=== PATIENT | female | born 1955 | race Caucasian/White ===

== ENCOUNTER 2024-11-26 11:06 | Emergency (ER) | payer MEDICARE, SELFPAY ==
--- NOTE | ~2024-11-26 | XR_ITS ---
Clinical history:Proximal right index finger pain. Hyperflexion injury EXAM:X-ray finger second right minimum 2 views TECHNIQUE:4 images of the right second digit were obtained. Comparisons:None available FINDINGS: [ No significant degenerative change.] [ No radiographic evidence for an acute fracture or dislocation.] [ No radiopaque foreign body.] [ No sclerotic or destructive bone lesions.] Soft tissue swelling about the right second digit. IMPRESSION: 1. [ No acute bony abnormality identified.] If symptoms persist or worsen consider a short-term follow-up study or additional imaging for further assessment. Reviewed, dictated and finalized at location Q. IMPRESSION: 1. [ No acute bony abnormality identified.] If symptoms persist or worsen consider a short-term follow-up study or addition al imaging for further assessment.
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
--- OUTSIDE RECORDS SUMMARY | 2024-11-26 11:09 | XMS_ITS ---
Author Organization [facility] Address [address] [place] [address] Care Team Providers Care Smoking Tobacco Packer Hand Name Role Phone David Hayden MD Primary Care Provider + [phone] David Hayden MD Unavailable [phone] Eri Degroot MARINE PAINTER Unavailable Unavailab Dorinda Saavedra MARINE PAINTER Unavailable Unavailab David Echevarria MD Unavailable Maria Elena Rinaldi PT Unavailable Unavailable Liana Milan SPA DIRECTOR/FINANCE Unavailable Unavailable Tomas Ruff MD Unavailable Active Problems Problem Noted Date Diagnosed Date Screen for colon cancer 09/10/2018 Overview (09/10/2018): Added automatically from request for surgery [id number] Unilateral vocal fold paralysis 06/11/2018 Assessment & [...] (12/31/2017): Added automatically from request for surgery [id number] Low back pain 07/16/2017 Hematoma of neck 06/05/2017 Status post total left knee replacement 09/13/19 16 Visit for wound check 09/13/2015 Osteoarthritis 01/30/2012 Overview (05/31/2016): Osteoarthritis Hypothyroidism 01/30/2012 Overview (05/31/2016): Hypothyroidism Current Treatment and Therapy Plans No current plan information found. Past Treatment and Therapy Plans No past plan information found. Lifetime Dose Tracking * Chemical Lifetime Dose Automatic Entry Manual Entr y Fluoro Time 0.9 minutes 0.9 minutes 0 minutes Resolved Problems Problem Noted Date Diagnosed Date [...]
--- OUTSIDE RECORDS SUMMARY | 2024-11-26 11:09 | XMS_ITS | Encounter Summary ---
Author Organization [facility] Address [address] [place] [address] Phone Care Team Providers Care Laundry Housekeeping Aide Name Role Phone David Hayden MD Primary Care Provider [phone] Radha Agarwal APRN, YOUTH WORKER Unavailable Reason for Visit * Reason Comments Medication Refill Encounter Details Date Type Department Care Team (Late st Contact Info) Description 05/07/2023 Refill [facility] - Internal Medicine - [place] [address] [place] [address] David Hayden MD [address] [place] [address] Medication Refill Social History Tobacco Use Types Packs/Day Years Used Date Smoking Tobacco: Never Passive Smoke Exposure: Never Smokeless Tobacco: Never Alcohol Use Standard Drinks/Week Comments Not Currently 0 (1 standard drink = 0.6 oz pur e alcohol) [facility] Utilities Answer Date Recorded In the past 12 months has [employer], gas, oil, or water company threatened to shut off services in your home? No 03/25/2023 Social Connection and Isolation Panel Answer Date Recorded In a typical week, how many times do you talk on the phone with family, friends, or neighbors? More than three times a week 03/25/2023 How often do you get togethe r with friends or relatives? More than three times a week 03/25/2023 How often do you attend chur ch or cheondoism services? More than 4 times per year 03/25/2023 Do you belong to any clubs o r organizations such as congregational groups, unions, fraternal or athletic groups, or school groups? Yes 03/25/2023 How often do you attend meet ings of the clubs or organizations you belong to? More than 4 times per year 03/25/2023 Are you , , di vorced, , never , or living with a partner? 03/25/2023 AUDIT-C Answer Date Recorded Q1: How often do you have a drink containing alcohol? Never 03/25/2023 Q2: How many drinks containi ng alcohol do you have on a typical day when you are drinking? Patient does not drink Q3: How often do you have si x or more drinks on one occasion? Never 03/25/2023 Overall Financial Resource Strain (CARDIA) Answe r Date Recorded How hard is it for you to pa y for the very basics like food, housing, medical care, and heating? Not hard at all 03/25/2023 PHQ-2 Answer Date Recorded Total Score - Questions 1-9 0 02/26 [facility] Occupat ional Health - Occupational Stress Questionnaire Answer Date Recorded Do you feel stress - tense, restless, nervous, or anxious, or unable to sleep at night because your mind is troubled all the time - these days? Only a little 03/25/2023 Exercise Vital Sign Answer Date Recorde d On average, how many days pe r week do you engage in moderate to strenuous exercise (like a brisk walk)? 3 days 03/25/2023 On average, how many minutes do you engage in exercise at this level? 40 min 03/25/2023 Hunger Vital Sign Answer Date Recorded Within the past 12 months, y ou worried that your food would run out before you got the money to buy more. Never true 03/25/19 24 Within the past 12 months, t he food you bought just didn't last and you didn't have money to get more. Never true 03/25/2023 PRAPARE - Transportation Answer Date Re corded In the past 12 months, has l ack of transportation kept you from medical appointments or from getting medications? No 02/26 In the past 12 months, has l ack of transportation kept you from meetings, work, or from getting things needed for daily living? No 03/25/2023 Housing Stability Vital Sign Answer Selvin e Recorded In the last 12 months, was t here a time when you were not able to pay the mortgage or rent on time? No 03/25/2023 In the last 12 months, how many places have you lived? 2 03/25/2023 In the last 12 months, was t here a time when you did not have a steady place to sleep or slept in a nursing home (including now)? No 03/25/2023 Sexually Active Control Partners Comments Yes Comments No Sex and Gender Information Value Date Recorded Sex Assigned at Not on file Legal Sex Female 12:34 AM CDT Gender Identity Not on file Sexual Orientation Not on file documented as of this encounter Miscellaneous Notes * Telephone Encounter - Rina Rae RN - 05/07/2023 2:22 PM CDT Medication failed the protocol, provider to review and approve the medication order if appropriate. Requested Prescriptions Pending Prescriptions Disp Refills levothyroxine (SYNTHROID) 112 MCG Tablet [Pharmacy Med Name: Levothyroxine Sodium 112 MCG Oral Tablet] 90 Tablet 0 Sig: Take 1 tablet by mouth once daily Thyroid Hormones Protocol Passed - 05/07/2023 2:16 PM Passed - Visit with relevant provider in past 12 months or upcoming 90 days Recent Visits Date Type Provider Dept 03/25/23 Office Visit David Hayden MD [facility] [place] 12/19/22 Office Visit David Hayden MD [facility] [place] 09/03/22 Office Visit David Hayden MD [facility] [place] 06/04/22 Office Visit David Hayden MD [facility] [place] Showing recent visits within past 365 days and meeting all other requirements Future Appointments Date Type Provider Dept 06/24/23 Appointment David Hayden MD [facility] [place] Showing future appointments within next 90 days and meeting all other requirements Passed - Normal TSH in past 12 months TSH Date Value Ref Range Status 03/26/2023 1.955 0.300 - 5.000 mIU/L Final cyclobenzaprine (FLEXERIL) 10 MG Tablet [Pharmacy Med Name: Cyclobenzaprine HCl 10 MG Oral Tablet] 45 Tablet 0 Sig: TAKE 1/2 (ONE-HALF) TABLET BY MOUTH THREE TIMES DAILY NEEDED FOR MUSCLE SPASM Not Delegated - Muscle Relaxants Protocol Failed - 05/07/2023 2:16 PM Failed - This refill cannot be delegated Failed - Not delegated, patient not between 1 and 65 years of age Passed - Visit with relevant provider in past 12 months or upcoming 90 days Recent Visits Date Type Provider Dept 03/25/23 Office Visit David Hayden MD [facility] [place] 12/19/22 Office Visit David Hayden MD [facility] [place] 09/03/22 Office Visit David Hayden MD [facility] [place] 06/04/22 Office Visit David Hayden MD [facility] [place] Showing recent visits within past 365 days and meeting all other requirements Future Appointments Date Type Provider Dept 06/24/23 Appointment David Hayden MD [facility] [place] Showing future appointments within next 90 days and meeting all other requirements documented in this encounter Plan of Treatment Upcoming Encounters Date Type Department Care Team (Late st Contact Info) Description 01/06/2025 9:00 AM MATERNAL FETAL PHYSICIAN Office Visit [facility] - Primary Care - [place] [address] [place] [phone] David Hayden MD [address] [place] [address] 01/31/2025 1:30 PM MATERNAL FETAL PHYSICIAN Office Visit [facility] - Gastroenterology - [place] [address] [facility] [place] [address] Radha Agarwal APRN, YOUTH WORKER [address] [place] [address] documented as of this encounter Visit Diagnoses Not on filedocumented in this encounter Additional Health Concerns Assessment Noted Time PHQ-9 Depression Total Score: 0 03/25/19 24 3:25 PM MATERNAL FETAL PHYSICIAN documented as of this encounter Care Teams Laundry Housekeeping Aide Relationship Specialty Start Date End Date David Hayden MD PCP - General Internal Medicine 12/22/19 Radha Agarwal APRN, YOUTH WORKER [address] [place] [address] Nurse Practitioner Advanced Practice Nurse 04/23/24 documented as of this encounter
--- OUTSIDE RECORDS SUMMARY | 2024-11-26 11:09 | XMS_ITS | Clinical Summary ---
Author Organization [facility] Address [address] [place] [address] Phone Care Team Providers Care Bank Vault Clerk Name Role Phone David Hayden MD Primary Care Provider [phone] Radha Agarwal APRN, HAND BINDER STRIPPER Unavailable Allergies Active Allergy Reactions Criticality Noted Date Comments Tetracycline Unknown 07/17/2015 As a baby. Medications calcium carbonate (TUMS) 250 MG Chewable Tablet Take 1,625 mg by mouth. Active Biotin 10 MG Capsule Take 10,000 mcg by mouth. Active Cyanocobalamin (VITAMIN B-12) 1000 MCG Tablet Take 5,000 mcg by mouth. Active Vitamin E 45 MG (100 UNIT) Capsule Take 100 Units by mouth. Active Multiple Vitamin (MULTI-VITAMIN PO) Take by mouth. Active gabapentin (NEURONTIN) 100 MG Capsule TAKE 1 CAPSULE BY MOUTH NIGHTLY 90 Capsule 07/22/19 25 Active levothyroxine (SYNTHROID) 112 MCG Tablet Take 1 tablet by mouth once daily 90 Tablet 11/02/19 25 Active cyclobenzaprine (FLEXERIL) 10 MG Tablet TAKE 1/2 (ONE-HALF) TABLET BY MOUTH THREE TIMES DAILY NEEDED FOR MUSCLE SPASM 45 Tablet 11/02/19 25 Active HYDROcodone-az taminophen (NORCO) 7.5-325 MG TabletIndicatio ns:Primary generalized (osteo)arthriti s Take 1 Tablet by mouth Daily as needed for Moderate or more severe pain. 30 Tablet 11/02/19 25 Active cyclobenzaprine (FLEXERIL) 10 MG Tablet TAKE 1/2 (ONE-HALF) TABLET BY MOUTH THREE TIMES DAILY NEEDED FOR MUSCLE SPASM 45 Tablet 07/06/19 25 025 Discontinued levothyroxine (SYNTHROID) 112 MCG Tablet Take 1 Tablet by mouth daily. 90 Tablet 07/22/19 25 025 Discontinued HYDROcodone-az taminophen (NORCO) 7.5-325 MG TabletIndicatio ns:Primary generalized (osteo)arthriti s Take 1 Tablet by mouth Daily as needed for Moderate or more severe pain. 30 Tablet 09/07/19 25 025 Discontinued(Re order) Active Problems Problem Noted Date Diagnosed Date Other cirrhosis of liver 04/07/2024 Other specified hypothyroidism 09/07/2020 Overview (09/07/2020): Stable. Continue current medication Chronic bilateral low back pain without sciatica 01/05/2020 Bariatric surgery status 01/05/2020 History of endometrial cancer 01/05/2020 Unilateral vocal cord paralysis 01/05/2020 Primary generalized (osteo)arthritis 05/10/2011 Resolved Problems Problem Noted Date Diagnosed Date Resolved Date Upper respiratory tract infection 04/07/2024 07/05/2024 Malignant neoplasm of endometrium 07/29/2018 03/14/2022 Encounters Date Type Department Care Team Description 11/10/2024 Transcribe Orders [facility] Central Scheduling [address] [place] [address] Tomas Ruff MD Other abnormal and inconclusive findings on diagnostic imaging of breast (Primary Dx) 11/08/2024 2:30 PM CDT - 11/08/2024 11:59 PM CDT [facility] [address] [place] [address] Benigno Ruff MD Discharge Disposition: Discharged to home or Selfcare 11/08/2024 Travel 11/01/2024 Telephone [facility] - Primary Care - [place] [address] [place] [address] David Hayden MD Medication Refill 11/01/2024 Refill [facility] Internal Medicine [facility] [address] [place] [address] David Hayden MD Medication Refill 10/27/2024 Transcribe Orders [facility] [address] [place] [address] [place] [address] Benigno Ruff MD Visit for screening mammogram (Primary Dx) 10/05/2024 11:00 AM CDT Office Visit [facility] - Primary Care - [place] [id number] [place] [address] David Hayden MD Chronic bilateral low back pain without sciatica (Primary Dx); Primary generalized (osteo)arthritis; Other specified hypothyroidism Discharge Disposition: Discharged to home or Selfcare 10/05/2024 Travel 09/06/2024 Refill [facility] Internal [facility] [address] [place] [address] David Hayden MD Medication Refill from Last 3 Months Immunizations Immunization Administration Dates Next Due TDAP Vaccine 08/05/2020 Zoster Vaccine Recombinant 06/20/2022 Zoster Vaccine, live 06/27/2015 Family History Medical History Relation Name Comments No Known Problems Brother Heart Attack Father Hypertension Father Breast Cancer Mother Cancer Mother Breast Cancer Niece Breast Cancer Paternal Uncle Relation Name Status Comments Brother Alive Father Alive Mother Niece Other Paternal Uncle Sister Social History Tobacco Use Types Packs/Day Years Used Date Smoking Tobacco: Never Passive Smoke Exposure: Never Smokeless Tobacco: Never Tobacco Cessation:Counseling Given: No Alcohol Use Standard Drinks/Week Comments Not Currently 0 (1 standard drink = 0.6 oz pur e alcohol) [facility] Utilities Answer Date Recorded In the past 12 months has [employer], gas, oil, or water [place] threatened to shut off services in your [...] 03/25/2023 How often do you attend chur or moravian services? More than 4 times per year 03/25/2023 Do you belong to any clubs o r organizations such as scientology groups, unions, fraternal or athletic groups, or [...] Recorded Total Score - Questions 1-9 0 06/24 [employer] of Occupat ional Health - Occupational Stress [...] place to sleep or slept in a chcf (including now)? No 03/25/2023 Sexually Active Control Partners Comments Yes Comments No Sex and Gender Information Value Date Recorded Sex Assigned at Not on file Legal Sex Female 12:34 AM CDT Gender Identity Not on file Sexual Orientation Not on file Last Filed Vital Signs Vital Sign Reading Time Taken Comments Blood Pressure 134/76 10/05/2024 10:50 AM CDT Pulse 76 10/05/2024 10:50 AM CDT Temperature 36.4 C (97.5 F) 10/05/2024 10:50 AM CDT Respiratory Rate 14 07/26/2024 1:37 PM CDT Oxygen Saturation 98% 10/05/2024 10:50 AM CDT Inhaled Oxygen Concentration - - Weight 108.9 kg (240 lb) 10/05/2024 10:50 AM CDT Height 170.2 cm (5' 7) 10/05/2024 10:50 AM CDT Body Mass Index 37.59 10/05/2024 10:50 AM CDT Plan of Treatment Upcoming Encounters Date Type Department Care Team (Late st Contact Info) Description 01/06/2025 9:00 AM ELECTRIC CRANE OPERATOR Office Visit [facility] - Primary Care - [place] [address] [place] [place] [phone] David Hayden MD [address] [place] [address] 01/31/2025 1:30 PM ELECTRIC CRANE OPERATOR Office Visit [facility] - Gastroenterology - [place] [address] [place] [address] Radha Agarwal, REINIER, HAND BINDER STRIPPER [address] [place] [address] Health Maintenance Due Date Last Done Comments DEXA Bone Density 1955 Immunochemical Fecal Occult Blood 02/12/2000 Hepatitis B Immunization (1 of 3 - Risk 3-dose series) 2015 Respiratory Syncytial Virus (RSV) Immunization (Adult) (1 - Risk 60-74 years 1-dose series) 2015 Medicare Initial AWV G0438 06/24/2021 Cologuard 08/26/2021 08/26/2018 SARS-COV-2 Immunization ( season) 2024 05/13/2020, 04/22/2020 Mammogram 11/08/2025 11/08/2024, 090 10/2023, 01/11/2022, Additional history exists Td Immunization Every 10 Years (Adults With 1 Tdap) 08/05/2030 08/05/2020, 05/30/2017 Colonoscopy 12/25/2031 12/24/2021, 11/24, 10/05/2018, Additional history exists Colorectal Cancer Screening 12/25/2031 DTaP/Tdap/Td Immunization Discontinued 08/05/2020, 07/2017 Zoster Immunization Discontinued 08/15/2022, 06/20/2022, 06/27/2015 Hepatitis C Virus (HCV) Screening Completed 04/23/2024 Human Papillomavirus (HPV) Immunization Aged Out No longer eligible based on patient's age to complete this topic Influenza Immunization Discontinued Meningococcal Immunization (ACWY) Aged Out No longer eligible based on patient's age to complete this topic Pneumococcal Immunization (50+ years) Discontinued Rotavirus Immunization Aged Out No lo nger eligible based on patient's age to complete this topic Procedures Procedure Name Priority Date/Time Associated Diagnosis Comments RANI SCREENING BILATERAL DIGITAL W CAD W CASIMIRO Routine 11/08/2024 3:15 PM CDT Visit for screening mammogram HEPATITIS C ANTIBODY Routine 04/23/2024 12:22 PM ELECTRIC CRANE OPERATOR Other cirrhosis of liver (HCC) HM COLONOSCOPY 12/24/2021 12:00 AM CDT COLOGUARD Routine 08/26/2018 from Last 3 Months or Most Recently Relevant to Health Maintenance Results * [facility] SCREENING BILATERAL DIGITAL W CAD W CASIMIRO (11/08/2024 3:15 PM CDT) Anatomical Region Laterality Modality breast Bilateral Mammography 11/08/2024 2:49 PM CDT Impressions 11/08/2024 5:22 PM CDT IMPRESSION: Possible left breast mass. Further evaluation with limited breast ultrasound and possible diagnostic mammogram is advised. RECOMMENDATION: Immediate follow-up. BI-RADS 0: Incomplete: Need additional imaging evaluation. Narrative 11/08/2024 5:22 PM CDT [facility] SCREENING BILATERAL DIGITAL W CAD W CASIMIRO EXAM DATE: 11/08/2024 2:36 PM HISTORY: 69 years year old Female. Encounter for screening mammogram for malignant neoplasm of breast TECHNIQUE: Standard bilateral mammographic views were obtained. Additional 3D tomographic mammography was also obtained. Current study was also evaluated with a Computer Aided Detection (CAD) system. COMPARISON: Comparison made with previous examination(s) dated (MG) 03-Nov-2023,([place]) 11-Jan-2022,([place]) 11-Jan-2022. FINDINGS: There are scattered areas of fibroglandular density. (Category B) Right breast biopsy marker noted. Left breast lateral aspect possible mass noted 5 cm from nipple and measures approximately 1 cm in size. Further evaluation with limited breast ultrasound and possible diagnostic mammogram is advised. No suspicious masses, calcifications, architectural distortion or other findings in the right breast. us Tomas Ruff MD IMG MAMMO ORDERABLES F inal Result * HEPATITIS C ANTIBODY (04/23/2024 12:22 PM ELECTRIC CRANE OPERATOR) hepatitis C antibody 0.26 <1 S/CO 04/23/2024 10:41 PM ELECTRIC CRANE OPERATOR [facility] Comment: Signal/Cutoff ratio < 0.79 is Nondetected Signal/Cutoff ratio 0.80-0.99 is Grayzone Signal/Cutoff ratio > 0.99 is Detected Supplemental assays are recommended if signal/cutoff ratio is >/=1.00. Signal/cutoff ratio result >/= 5.00 is 97% predictive of positivity for recombinant immunoblot assay (RIBA) and will be reported to the [place] Department of Public Health as required. Blood Venipuncture / Unknown 04/23/2024 12:22 PM ELECTRIC CRANE OPERATOR 04/23/2024 12:27 PM ELECTRIC CRANE OPERATOR us Radha Agarwal HAND ASSEMBLER FOR PULLER OVER, HAND BINDER STRIPPER CHEMISTRY ORDERAB LES Final Result Performing Organization Address City/[facility]/ZIP Co de Phone Number [facility] [address] [place] [address], [place] * COLONOSCOPY (12/24/2021 12:00 AM CDT) 12/24/2021 us Not On File Provider PROCEDURE/MINOR SURGICAL OR DERABLES Final Result SCAN * COLOGUARD (08/26/2018) us David Hayden MD BODY FLUIDS & STOOLS ORDERA BLES Final Result from Last 3 Months or Most Recently Relevant to Health Maintenance Insurance [employer] Care Teams Bank Vault Clerk Relationship Specialty Start Date End Date David Hayden MD PCP - General Internal Medicine 12/22/19 Radha Agarwal APRN, HAND BINDER STRIPPER [address] [place] [address] Nurse Practitioner Advanced Practice Nurse 04/23/24
--- OUTSIDE RECORDS SUMMARY | 2024-11-26 11:09 | XMS_ITS | Encounter Summary ---
Author Organization [facility] Address [address] [place] [address] Phone Care Team Providers Care Peoplesoft Hrms Developer Name Role Phone David Hayden MD Primary Care Provider [phone] Radha Agarwal APRN, FORESTER SILVICULTURE Unavailable Reason for Visit * Reason Comments Medication Refill Encounter Details Date Type Department Care Team (Late st Contact Info) Description 08/02/2022 Refill [facility] - Internal Medicine - [place] [address] [place] [address] David Hayden MD [address] [place] [address] Medication Refill Social History Tobacco Use Types Packs/Day Years Used Date Smoking Tobacco: Never Passive Smoke Exposure: Never Smokeless Tobacco: Never Alcohol Use Standard Drinks/Week Comments Not Currently 0 (1 standard drink = 0.6 oz pur e alcohol) PHQ-2 Answer Date Recorded Total Score - Questions 1-9 0 05/25 Sexually Active Control Partners Comments Yes Comments No Sex and Gender Information Value Date Recorded Sex Assigned at Not on file Legal Sex Female 12:34 AM CDT Gender Identity Not on file Sexual Orientation Not on file documented as of this encounter Miscellaneous Notes * Telephone Encounter - Rina Rae RN - 08/02/2022 11:23 AM CDT Medication failed the protocol, provider to review and approve the medication order if appropriate. Requested Prescriptions Pending Prescriptions Disp Refills levothyroxine (SYNTHROID) 112 MCG Tablet [Pharmacy Med Name: Levothyroxine Sodium 112 MCG Oral Tablet] 90 Tablet 0 Sig: Take 1 tablet by mouth once daily Thyroid Hormones Protocol Failed - 08/02/2022 9:54 AM Failed - Normal TSH in past 12 months TSH Date Value Ref Range Status 11/09/2020 1.040 0.270 - 4.200 mIU/L Final Passed - Visit with relevant provider in past 12 months or upcoming 90 days Recent Visits Date Type Provider Dept 06/04/22 Office Visit David Hayden MD [facility] [place] 03/14/22 Office Visit David Hayden MD [facility] [place] 12/12/21 Office Visit David Hayden MD [facility] [place] 09/10/21 Office Visit David Hayden MD [facility] [place] Showing recent visits within past 365 days and meeting all other requirements Future Appointments Date Type Provider Dept 09/03/22 Appointment aDvid Hayden MD [facility] [place] Showing future appointments within next 90 days and meeting all other requirements documented in this encounter Plan of Treatment Upcoming Encounters Date Type Department Care Team (Late st Contact Info) Description 01/06/2025 9:00 AM MEDICAL CARE ADMINISTRATOR Office Visit [facility] - Primary Care - [place] [address] [place] [phone] David Hayden MD [address] [place] [address] 01/31/2025 1:30 PM MEDICAL CARE ADMINISTRATOR Office Visit [facility] - Gastroenterology - [place] [address] [place] [address] Radha Agarwal APRN, FORESTER SILVICULTURE [address] [place] [address] documented as of this encounter Visit Diagnoses Not on filedocumented in this encounter Additional Health Concerns Assessment Noted Time PHQ-9 Depression Total Score: 0 06/09/19 21 3:00 PM CDT documented as of this encounter Care Teams Peoplesoft Hrms Developer Relationship Specialty Start Date End Date David Hayden MD PCP - General Internal Medicine 12/22/19 Radha Agarwal APRN, FORESTER SILVICULTURE [address] [place] [address] Nurse Practitioner Advanced Practice Nurse 04/23/24 documented as of this encounter
--- OUTSIDE RECORDS SUMMARY | 2024-11-26 11:09 | XMS_ITS | Encounter Summary ---
Author Organization [facility] Address [address] [place] [address] Phone Care Team Providers Care Broker Assistant Name Role Phone David Hayden MD Primary Care Provider [phone] Radha Agarwal APRN, LAPPING MACHINE OPERATOR Unavailable Reason for Referral * Radiology Services (Routine) - Closed Specialty Diagnoses / Procedures Referred By Contac t Referred To Contact Radiology Diagnoses Visit for screening mammogram Procedures RANI SCREENING BILATERAL DIGITAL W CAD W Benigno Posada MD [address] [place] [address] Phone: tel: fax: Referral ID Status Reason Start Date Expiration Date Visits Re quested Visits Authorized [id number] Closed 10/27/2024 1 1 Encounter Details Date Type Department Care Team (Late st Contact Info) Description 10/27/2024 Transcribe Orders [facility] [address] [place] [address] Benigno Ruff MD [address] [facility] [address] [address] Visit for screening mammogram (Primary Dx) Social History Tobacco Use Types Packs/Day Years Used Date Smoking Tobacco: Never Passive Smoke Exposure: Never Smokeless Tobacco: Never Alcohol Use Standard Drinks/Week Comments Not Currently 0 (1 standard drink = 0.6 oz pur e alcohol) [facility] Utilities Answer Date Recorded In the past 12 months has th e electric, gas, oil, or water company threatened to [...] often do you attend chur ch or jain services? More than 4 times per year 03/25/2023 Do you belong to any clubs o r organizations such as presybeterian groups, unions, fraternal or athletic groups, or [...] Total Score - Questions 1-9 0 06/24 [employer] [place] of Occupat ional Health - Occupational Stress [...] place to sleep or slept in a fci (including now)? No 03/25/2023 Sexually Active Control Partners Comments Yes Comments No Sex and Gender Information Value Date Recorded Sex Assigned at Not on file Legal Sex Female 12:34 AM CDT Gender Identity Not on file Sexual Orientation Not on file documented as of this encounter Plan of Treatment Upcoming Encounters Date Type Department Care Team (Late st Contact Info) Description 01/06/2025 9:00 AM LINER REPLACER Office Visit [facility] - Primary Care - [place] [address] [phone] David Hayden MD [address] [address] 01/31/2025 1:30 PM LINER REPLACER Office Visit [facility] - Gastroenterology - [place] [address] [place] [address] Stefano Radha Juan, CHIEF REVENUE OFFICER, LAPPING MACHINE OPERATOR [address] [place] [address] documented as of this encounter Results * [facility] SCREENING BILATERAL DIGITAL W CAD W CASIMIRO (11/08/2024 3:15 PM CDT) Anatomical Region Laterality Modality breast Bilateral Mammography 11/08/2024 2:49 PM CDT Impressions 11/08/2024 5:22 PM CDT IMPRESSION: Possible left breast mass. Further evaluation with limited breast ultrasound and possible diagnostic mammogram is advised. RECOMMENDATION: Immediate follow-up. BI-RADS 0: Incomplete: Need additional imaging evaluation. Narrative 11/08/2024 5:22 PM CDT [facility] SCREENING BILATERAL DIGITAL W CAD W CASIMIRO [...] MD IMG MAMMO ORDERABLES F inal Result documented in this encounter Visit Diagnoses Diagnosis Visit for screening mammogram- Primary Other screening mammogram Visit for screening mammogram Other screening mammogram documented in this encounter Additional Health Concerns Assessment Noted Time PHQ-9 Depression Total Score: 0 07/06/19 25 10:59 AM CDT documented as of this encounter Care Teams Broker Assistant Relationship Specialty Start Date End Date David Hayden MD PCP - General Internal Medicine 12/22/19 Radha Agarwal APRN, [address] [place] [id number] Nurse Practitioner Advanced Practice Nurse 04/23/24 documented as of this encounter
--- OUTSIDE RECORDS SUMMARY | 2024-11-26 11:09 | XMS_ITS | Clinical Summary ---
Author Organization [facility] Address [address] [place] [address] Care Team Providers Care Port Drier Name Role Phone Magdaleno Dave MD Unavailable [phone] Source Comments [facility],non-owned Affiliates and Associated Physician Practices is amultiple site organization consisting of ambulatory clinics and hospital sitesin [place], [place], [place] and [place]. This disclosure is being madepursuant to the Care Everywhere program and may not contain all information available regarding this patient. Last updated 17.[facility] Allergies Active Allergy Reactions Criticality Noted Date Comments Tetracycline 07/17/2015 Medications * Be aware that medications may not be up to date on this document. Alwaysverify current medications with the patient. levothyroxine (SYNTHROID) 125 MCG tablet Take 125 mcg by mouth daily before breakfast 5 6 Active cyclobenzaprine (FLEXERIL) 10 MG tablet 5 mg 3 times daily as needed for Muscle Spasms 2 6 Active zolpidem (AMBIEN) 10 MG tablet Take 10 mg by mouth nightly as needed for Insomnia Active multivitamin daily (THERAGRAN) tablet Take 1 Tab by mouth daily with food Active lansoprazole (PREVACID) 30 MG capsule Take 30 mg by mouth daily before breakfast Active Calcium Carb-Cholecalci ferol (CALCIUM + D3 PO) Take 600 mg by mouth once daily Active oxyCODONE-aceta minophen (PERCOCET) 10-325 MG tablet Take 0.5-1 Tabs by mouth every 6 hours as needed for Pain 90 Tab 7 Active Active Problems Problem Noted Date Diagnosed Date Closed fracture of distal end of left radius Status post total left knee replacement 09/13/19 16 Visit for wound check 09/13/2015 Primary osteoarthritis of left knee 07/03/2015 Social History Tobacco Use Types Packs/Day Years Used Date Smoking Tobacco: Never Alcohol Use Standard Drinks/Week Comments No 0 (1 standard drink = 0.6 oz pur e alcohol) Comments No Sex and Gender Information Value Date Recorded Sex Assigned at Not on file Legal Sex Female 11:53 AM FINANCIAL RESERVE CLERK Gender Identity Not on file Sexual Orientation Not on file Last Filed Vital Signs Vital Sign Reading Time Taken Comments Blood Pressure 142/95 03/14/2016 8:58 AM FINANCIAL RESERVE CLERK Pulse 108 03/14/2016 8:58 AM FINANCIAL RESERVE CLERK Temperature 36.7 C (98.1 F) 03/14/2016 8:58 AM FINANCIAL RESERVE CLERK Respiratory Rate 18 03/14/2016 8:58 AM FINANCIAL RESERVE CLERK Oxygen Saturation 98% 03/14/2016 8:58 AM FINANCIAL RESERVE CLERK Inhaled Oxygen Concentration - - Weight 131.5 kg (290 lb) 03/11/2016 6:29 AM FINANCIAL RESERVE CLERK Height 172 cm (5' 7.7) 03/11/2016 6:29 AM FINANCIAL RESERVE CLERK Body Mass Index 44.49 03/11/2016 6:29 AM FINANCIAL RESERVE CLERK Plan of Treatment Health Maintenance Due Date Last Done Comments BONE DENSITY TESTING 1955 COLOGUARD (AGES 45-75) - COL ON CA SCREENING 1955 COLON MONITORING 1955 COLONOSCOPY - COLON CA SCREENING 1955 CT COLONOGRAPHY - COLON CA SCREENING 1955 Colorectal Cancer Screening 1955 FIT - COLON CA SCREENING 1955 FLEX SIG - COLON CA SCREENING 1955 LIPID TESTING 1955 MAMMOGRAM 1955 HEPATITIS C SCREENING 02/06/1973 DTAP/TDAP/TD VACCINES (1 - Tdap) 1974 PNEUMOCOCCAL VACCINE 50+ (1 of 1 - PCV) 2005 ZOSTER VACCINE (1 of 2) 2005 SCREENING FOR DIABETES 03/11/2019 7, 02/21/2016, 07/17/2015 DEPRESSION SCREENING 02/25/2024 COVID-19 VACCINE ( - 2023-2 5 season) 2024 INFLUENZA VACCINE (#1) 2024 Respiratory Syncytial Virus (RSV) Vaccine Pt: or over 60 yrs (1 - 1-dose 75+ series) 2030 HEPATITIS B VACCINE Aged Out No longe r eligible based on patient's age to complete this topic HIB VACCINE Aged Out No longer eligi ble based on patient's age to complete this topic HPV VACCINE Aged Out No longer eligi ble based on patient's age to complete this topic MENINGOCOCCAL (Group B) VACCINE SHARED DECISION-MAKING Aged Out No longer eligible based on patient's age to complete this topic MENINGOCOCCAL GROUPS A/C/Y/W VACCINE Aged Out No longer eligible b ased on patient's age to complete this topic Medical Devices Implanted Type Area Service Or Work Dispatcher Chief Device Identifier Shelf Expiration Date Model / Serial / Lot Milo Bone Stoughton Hv Implanted:Qty: 1 on 08/07/2015 by Magdaleno Dave MD at [facility] Left: Knee [employer] 12/24/2016 [id number] / / [id number] Ty Tibial Maxim 71mm Implanted:Qty: 1 on 08/07/2015 by Magdaleno Dave MD at [facility] Left: Knee [employer] 09/22/2024 [id number] / / [id number] Kn Ins Vangurd Fem Cocr Intlok L 67.5mm Implanted:Qty: 1 on 08/07/2015 by Magdaleno Dave MD at [facility] Left: Knee [employer] 12/05/2024 [id number] / / [id number] Butn Pat 31mm Implanted:Qty: 1 on 08/07/2015 by Magdaleno Dave MD at [facility] Left: Knee [employer] 01/14/2020 [id number] / / [id number] 16mm As Tibial Bearing Implanted:Qty: 1 on 08/07/2015 by Magdaleno Dave MD at [facility] Left: Knee [employer] 12/08/2019 [id number] / / [id number] As Tibial Bearing E1 Antioxidant Infused 12mm X 75mm Implanted:Qty: 1 on 03/11/2016 by Magdaleno Dave MD at [facility] Right: Knee [id number] 03/27/2020 [id number] / / [id number] Cmnt Bone Co Hv 40gm Implanted:Qty: 1 on 03/11/2016 by Magdaleno Dave MD at [facility] Right: Knee [employer] [id number] 06/23/2017 [id number] / / [id number] Tray Tib 75mm As Mx Kn Intlk Cocr 1 Pc Implanted:Qty: 1 on 03/11/2016 by Magdaleno Dave MD at [facility] Right: Knee [employer] [id number] 10/29/2025 [id number] / / [id number] Cmpnt Fem Kn Rt Cr Cmnt Prm Vngrd Intlk Implanted:Qty: 1 on 03/11/2016 by Magdaleno Dave MD at [facility] Right: Knee [employer] [id number] 02/13/2026 [id number] / / [id number] Cmpnt Ptlr Std 31mm 3 Pg Kn Ser A Implanted:Qty: 1 on 03/11/2016 by Magdaleno Dave MD at [facility] Right: Knee [employer] [id number] 02/10/2021 [id number] / / [id number] Procedures Procedure Name Priority Date/Time Associated Diagnosis Comments GLUCOSE - POINT OF CARE Routine 03/11/2016 6:56 AM FINANCIAL RESERVE CLERK from Last 3 Months or Most Recently Relevant to Health Maintenance Results * (ABNORMAL) GLUCOSE - POINT OF CARE (03/11/2016 6:56 AM FINANCIAL RESERVE CLERK) [facility] Glucose WB/POC 114(H) 70 - 106 mg/dL 03/11/2016 7:05 AM FINANCIAL RESERVE CLERK [facility] Blood BLOOD SPECIMEN / Unknown 03/11/2016 6:56 AM FINANCIAL RESERVE CLERK 03/11/2016 7:04 AM FINANCIAL RESERVE CLERK us Magdaleno Dave MD LAB - POINT OF CARE ORDERABLE S Final Result [facility] [address] [place] [address] from Last 3 Months or Most Recently Relevant to Health Maintenance Insurance [facility] [place] [address] Advance Directives * Full Code (Latest Code Status on File) Date Activated Date Inactivated Comments 03/11/2016 11:35 AM 03/14/2016 4:21 PM * Full Code Date Activated Date Inactivated Comments 08/07/2015 3:46 PM 08/10/2015 1:36 PM Care Teams Port Drier Relationship Specialty Start Date End Date Magdaleno Dave MD Orthopedic Surgery 07/03/15
--- OUTSIDE RECORDS SUMMARY | 2024-11-26 11:09 | XMS_ITS | Encounter Summary ---
Author Organization [facility] Address [address] [place] [address] Phone Care Team Providers Care Wellness Manager Name Role Phone David Hayden MD Primary Care Provider [phone] Radha Agarwal APRN, PRODUCER ASSISTANT Unavailable Reason for Visit * Reason Comments Medication Refill Encounter Details Date Type Department Care Team (Late st Contact Info) Description 05/15/2023 [facility]ill [facility] - Internal Medicine - [place] [address] [place] [address] David Hayden MD [address] [place] [address] Medication Refill Social History Tobacco Use Types Packs/Day Years Used Date Smoking Tobacco: Never Passive Smoke Exposure: Never Smokeless Tobacco: Never Alcohol Use Standard Drinks/Week Comments Not Currently 0 (1 standard drink = 0.6 oz pur e alcohol) [facility] Utilities Answer Date Recorded In the past 12 months has [employer], gas, oil, or water company threatened to [...] often do you attend chur ch or episcopal services? More than 4 times per year 03/25/2023 Do you belong to any clubs o r organizations such as sikh groups, unions, fraternal or athletic groups, or [...] Total Score - Questions 1-9 0 02/26 [facility] of Occupat ional Health - Occupational Stress [...] place to sleep or slept in a care home (including now)? No 03/25/2023 Sexually Active Control Partners Comments Yes Comments No Sex and Gender Information Value Date Recorded Sex Assigned at Not on file Legal Sex Female 12:34 AM CDT Gender Identity Not on file Sexual Orientation Not on file documented as of this encounter Miscellaneous Notes * Telephone Encounter - Little Burden RN - 05/15/2023 12:08 PM CDT Medication failed the protocol, provider to review and approve the medication order if appropriate. Requested Prescriptions Pending Prescriptions Disp Refills gabapentin (NEURONTIN) 100 MG Capsule [Pharmacy Med Name: Gabapentin 100 MG Oral Capsule] 90 Capsule 0 Sig: TAKE 1 CAPSULE BY MOUTH NIGHTLY Not Delegated - Anticonvulsants Excluding Benzodiazepines Protocol Failed - 05/15/2023 12:08 PM Failed - This refill cannot be delegated Passed - Visit with relevant provider in past 12 months or upcoming 90 days Recent Visits Date Type Provider Dept 03/25/23 Office Visit David Hayden MD [facility] [place] 12/19/22 Office Visit David Hayden MD [facility] [place] 09/03/22 Office Visit David Hayden MD [facility] [place] 06/04/22 Office Visit David Hayden MD [facility] [place] Showing recent visits within past 365 days and meeting all other requirements Future Appointments Date Type Provider Dept 06/24/23 Appointment David Hayden MD [facility] [place] Showing future appointments within next 90 days and meeting all other requirements documented in this encounter Plan of Treatment Upcoming Encounters Date Type Department Care Team (Late st Contact Info) Description 01/06/2025 9:00 AM SPORTS CENTRE MANAGER Office Visit [facility] - Primary Care - [place] [address] [place] [address] David Hayden MD [address] [place] [address] 01/31/2025 1:30 PM SPORTS CENTRE MANAGER Office Visit [facility] Gastroenterology - [place] [address] [place] [address] Radha Agarwal APRN, PRODUCER ASSISTANT [address] [place] [address] documented as of this encounter Visit Diagnoses Not on filedocumented in this encounter Additional Health Concerns Assessment Noted Time PHQ-9 Depression Total Score: 0 03/25/19 24 3:25 PM SPORTS CENTRE MANAGER documented as of this encounter Care Teams Wellness Manager Relationship Specialty Start Date End Date David Hayden MD PCP - General Internal Medicine 12/22/19 Radha Agarwal APRN, PRODUCER ASSISTANT [address] [place] [address] Nurse Practitioner Advanced Practice Nurse 04/23/24 documented as of this encounter
--- OUTSIDE RECORDS SUMMARY | 2024-11-26 11:09 | XMS_ITS | Encounter Summary ---
Author Organization [facility] Address [address] [place] [address] Phone Care Team Providers Care Breast Splitter Name Role Phone David Hayden MD Primary Care Provider [phone] Radha Agarwal APRN, WATER PUMPER Unavailable Reason for Referral * Radiology Services (Routine) - Closed Specialty Diagnoses / Procedures Referred By Contac t Referred To Contact Radiology Diagnoses Encounter for screening mammogram for breast cancer Procedures RANI SCREENING BILATERAL DIGITAL W CAD W CASIMIRO David Hayden MD Phone: tel: fax: Referral ID Status Reason Start Date Expiration Date Visits Re quested Visits Authorized [id number] Closed 10/31/2023 1 1 Encounter Details Date Type Department Care Team (Late st Contact Info) Description 10/31/2023 Transcribe Orders [facility] Central Scheduling [address] [place] [address] David Hayden MD [address] [place] [address] Encounter for screening mammogram for breast cancer (Primary Dx) Social History Tobacco Use Types Packs/Day Years Used Date Smoking Tobacco: Never Passive Smoke Exposure: Never Smokeless Tobacco: Never Alcohol Use Standard Drinks/Week Comments Not Currently 0 (1 standard drink = 0.6 oz pur e alcohol) [facility] Utilities Answer Date Recorded In the [...] often do you attend chur ch or taoism services? More than 4 times per year 03/25/2023 Do you belong to any clubs o r organizations such as hindu groups, unions, fraternal or athletic groups, or [...] Total Score - Questions 1-9 0 02/26 [facility] [place] of Occupat ional Health - Occupational Stress [...] place to sleep or slept in a custodial (including now)? No 03/25/2023 Sexually Active Control [...] st Contact Info) Description 01/06/2025 9:00 AM CANE WEIGHER HELPER Office Visit [facility] - Primary Care - [place] [address] [place] [phone] David Hayden MD [address] [address] 01/31/2025 1:30 PM CANE WEIGHER HELPER Office Visit [facility] - Gastroenterology - [place] [address] [place] [address] Stefano Radha Juan, ALUMNI SECRETARY, WATER PUMPER [address] [place] [address] documented as of this encounter Results * RANI SCREENING BILATERAL DIGITAL W CAD W CASIMIRO (11/03/2023 4:11 PM CDT) Anatomical Region Laterality Modality breast Bilateral Mammography 11/03/2023 3:32 PM CDT Narrative 11/13/2023 10:45 AM CDT - RANI SCREENING BILATERAL DIGITAL W CAD W CASIMIRO BILATERAL DIGITAL SCREENING MAMMOGRAM 3D/2D WITH CAD WITH MEDIOLATERAL OBLIQUE CRANIOCAUDAL: 11/03/2023 The study was acquired using digital technology and interpreted from soft copy. Current study was also evaluated with PantheonD version 7.2. 2D digital mammographic views, as well as 3D digital tomosynthesis were performed in the CC and MLO projections. CLINICAL: Routine screening. Patient has no complaints. No personal history of cancer. Mother had premenopausal Paget's disease. Paternal aunt and a niece had breast cancer. COMPARISONS: Comparison is made to exams dated: 01/11/2022, 09/09/2020, and 09/26/2018 [facility]. BREAST TISSUE:The breasts are heterogeneously dense, which may obscure small masses. FINDINGS: There is a benign cyst in the left breast. There also are benign calcifications in both breasts. Additionally, there is a biopsy clip in the right breast. No significant masses, calcifications, or other findings are seen in either breast. There has been no significant interval change. IMPRESSION: BENIGN There is no mammographic evidence of malignancy. A 1 year screening mammogram is recommended. A letter will be sent to the patient with these results. The patient will be entered into a reminder system with a target due date of 1 year for her next screening exam. Electronically signed by: Breana miller/yosef:11/04/2023 20:08:57 Frame Straightener(s): RT Joseph(Myla)(M), [facility] letter sent: Normal Exam Reading location: [facility] Mammogram BI-RADS: Category 2: Benign Procedure Note Breana Perez MD - 11/13/2023 - RANI SCREENING BILATERAL DIGITAL W CAD W CASIMIRO BILATERAL DIGITAL SCREENING MAMMOGRAM 3D/2D WITH CAD WITH MEDIOLATERAL OBLIQUE CRANIOCAUDAL: 11/03/2023 The study was acquired using digital technology and interpreted from soft copy. Current study was also evaluated with ICAD version 7.2. 2D digital mammographic views, as well as 3D digital tomosynthesis were performed in the CC and MLO projections. CLINICAL: Routine screening. Patient has no complaints. No personal history of cancer. Mother had premenopausal Paget's disease. Paternal aunt and a niece had breast cancer. COMPARISONS: Comparison is made to exams dated: 01/11/2022, 09/09/2020, and 09/26/2018 [facility]. BREAST TISSUE:The breasts are heterogeneously dense, which may obscure small masses. FINDINGS: There is a benign cyst in the left breast. There also are benign calcifications in both breasts. Additionally, there is a biopsy clip in the right breast. No significant masses, calcifications, or other findings are seen in either breast. There has been no significant interval change. IMPRESSION: BENIGN There is no mammographic evidence of malignancy. A 1 year screening mammogram is recommended. A letter will be sent to the patient with these results. The patient will be entered into a reminder system with a target due date of 1 year for her next screening exam. Electronically signed by: Breana miller/yosef:11/04/2023 20:08:57 Frame Straightener(s): RT Joseph(R)(M), [facility] letter sent: Normal Exam Reading location: [facility] Mammogram BI-RADS: Category 2: Benign us David Hayden MD IMG MAMMO ORDERABLES Final Result documented in this encounter Visit Diagnoses Diagnosis Encounter for screening mammogram for breast cancer- Primary Encounter for screening mammogram for breast cancer documented in this encounter Additional Health Concerns Assessment Noted Time PHQ-9 Depression Total Score: 0 03/25/19 24 3:25 PM CANE WEIGHER HELPER documented as of this encounter Care Teams Breast Splitter Relationship Specialty Start Date End Date David Hayden MD PCP - General Internal Medicine 12/22/19 Radha Agarwal APRN, WATER PUMPER [address] [place] [address] Nurse Practitioner Advanced Practice Nurse 04/23/24 documented as of this encounter
--- OUTSIDE RECORDS SUMMARY | 2024-11-26 11:09 | XMS_ITS | Encounter Summary ---
Author Organization [facility] Address [address] [place] [address] Phone Care Team Providers Care Mule Packer Name Role Phone David Hayden MD Primary Care Provider [phone] Radha Agarwal APRN, EDITOR [place] Unavailable Reason for Visit * Reason Comments Medication Refill Encounter Details Date Type Department Care Team (Late st Contact Info) Description 08/07/2023 Refill [facility] - Internal Medicine - [place] [address] [place] [address] David Hayden MD [address] [place] [address] Medication Refill Social History Tobacco Use Types Packs/Day Years Used Date Smoking Tobacco: Never Passive Smoke Exposure: Never Smokeless Tobacco: Never Alcohol Use Standard Drinks/Week Comments Not Currently 0 (1 standard drink = 0.6 oz pur e alcohol) [facility] Utilities Answer Date Recorded In the past 12 months has [employer], gas, oil, or water company threatened to [...] often do you attend chur ch or gnosticist services? More than 4 times per year 03/25/2023 Do you belong to any clubs o r organizations such as jew groups, unions, fraternal or athletic groups, or [...] Total Score - Questions 1-9 0 02/26 [facility] - Occupational Stress [...] place to sleep or slept in a detention (including now)? No 03/25/2023 Sexually Active Control Partners Comments Yes Comments No Sex and Gender Information Value Date Recorded Sex Assigned at Not on file Legal Sex Female 12:34 AM CDT Gender Identity Not on file Sexual Orientation Not on file documented as of this encounter Miscellaneous Notes * Telephone Encounter - Rina Rae RN - 08/07/2023 1:47 PM CDT Medication failed the protocol, provider to review and approve the medication order if appropriate. Requested Prescriptions Pending Prescriptions Disp Refills gabapentin (NEURONTIN) 100 MG Capsule [Pharmacy Med Name: Gabapentin 100 MG Oral Capsule] 90 Capsule 0 Sig: TAKE 1 CAPSULE BY MOUTH NIGHTLY Not Delegated - Anticonvulsants Excluding Benzodiazepines Protocol Failed - 08/07/2023 12:04 PM Failed - This refill cannot be delegated Passed - Visit with relevant provider in past 12 months or upcoming 90 days Recent Visits Date Type Provider Dept 06/24/23 Office Visit David Hayden MD [facility] [place] 03/25/23 Office Visit David Hayden MD [facility] [place] 12/19/22 Office Visit David Hayden MD [facility] [place] 09/03/22 Office Visit David Hayden MD [facility] [place] Showing recent visits within past 365 days and meeting all other requirements Future Appointments Date Type Provider Dept 09/23/23 Appointment David Hayden MD [facility] [place] Showing future appointments within next 90 days and meeting all other requirements documented in this encounter Plan of Treatment Upcoming Encounters Date Type Department Care Team (Late st Contact Info) Description 01/06/2025 9:00 AM NIGHT GUARD Office Visit [facility] - Primary Care - [place] [address] [place] [address] David Hayden MD [address] [place] [address] 01/31/2025 1:30 PM NIGHT GUARD Office Visit [facility] Gastroenterology - [place] [address] [place] [address] Radha Agarwal APRN, [place] [address] [place] [address] documented as of this encounter Visit Diagnoses Not on filedocumented in this encounter Additional Health Concerns Assessment Noted Time PHQ-9 Depression Total Score: 0 03/25/19 24 3:25 PM NIGHT GUARD documented as of this encounter Care Teams Mule Packer Relationship Specialty Start Date End Date David Hayden MD PCP - General Internal Medicine 12/22/19 Radha Agarwal APRN, [place] [address] [place] [address] Nurse Practitioner Advanced Practice Nurse 04/23/24 documented as of this encounter
--- OUTSIDE RECORDS SUMMARY | 2024-11-26 11:09 | XMS_ITS | Encounter Summary ---
Author Organization [facility] Address [address] [place] [address] Phone Care Team Providers Care Senior Telecommunications Technician Name Role Phone David Hayden MD Primary Care Provider [phone] Radha Agarwal APRN, CLAIM AGENT Unavailable Reason for Visit * Reason Comments Medication Refill Encounter Details Date Type Department Care Team (Late st Contact Info) Description 10/23/2022 Refill [facility] - Internal Medicine [place] [address] Jaye Bernard, [facility] [address] [place] [address] Medication Refill Social History Tobacco [...] Telephone Encounter - Rina Rae RN - 10/23/2022 10:20 AM CDT Medication failed the protocol, provider to review and approve the medication order if appropriate. Requested Prescriptions Pending Prescriptions Disp Refills levothyroxine (SYNTHROID) 112 MCG Tablet [Pharmacy Med Name: Levothyroxine Sodium 112 MCG Oral Tablet] 90 Tablet 0 Sig: Take 1 tablet by mouth once daily Thyroid Hormones Protocol Failed - 10/23/2022 9:12 AM Failed - Normal TSH in past 12 months TSH Date Value Ref Range Status 11/09/2020 1.040 0.270 - 4.200 mIU/L Final Passed - Visit with relevant provider in past 12 months or upcoming 90 days Recent Visits Date Type Provider Dept 09/03/22 Office Visit David Hayden MD [facility] [place] 06/04/22 Office Visit David Hayden MD [facility] [place] 03/14/22 Office Visit David Hayden MD [facility] 12/12/21 Office Visit David Hayden MD [facility] Showing recent visits within past 365 days and meeting all other requirements Future Appointments Date Type Provider Dept 12/19/22 Appointment David Hayden MD [facility] Showing future appointments within next 90 days and meeting all other requirements documented in this encounter Plan of Treatment Upcoming Encounters Date Type Department Care Team (Late st Contact Info) Description 01/06/2025 9:00 AM HOOP MAKER MACHINE Office Visit [facility] - [place] Care - [place] [address] [place] [address] David Hayden MD [address] [place] [address] 01/31/2025 1:30 PM HOOP MAKER MACHINE Office Visit [facility] - Gastroenterology - [place] [address] [place] [address] Radha Agarwal APRN, CLAIM AGENT [address] [place] [address] documented as of this encounter Visit Diagnoses Not on filedocumented in this encounter Additional Health Concerns Assessment Noted Time PHQ-9 Depression Total Score: 0 06/09/19 21 3:00 PM CDT documented as of this encounter Care Teams Senior Telecommunications Technician Relationship Specialty Start Date End Date David Hayden MD PCP - General Internal Medicine 12/22/19 Radha Agarwal APRN, CLAIM AGENT [address] [place] [address] Nurse Practitioner Advanced Practice Nurse 04/23/24 documented as of this encounter
--- OUTSIDE RECORDS SUMMARY | 2024-11-26 11:09 | XMS_ITS | Encounter Summary ---
Author Organization [facility] Address [address] [place] [address] Phone Care Team Providers Care Aircraft Steel Fabricator Name Role Phone David Hayden MD Primary Care Provider [phone] Radha Agarwal LINING MAKER HAND, PARAEDUCATOR Unavailable Reason for Visit * Reason Comments Medication Refill Encounter Details Date Type Department Care Team (Late st Contact Info) Description 03/06/2020 Refill [facility] - Internal Medicine - [place] [address] [place] [address] David Hayden MD [address] [place] [address] Medication Refill Social History Tobacco Use Types Packs/Day Years Used Date Smoking Tobacco: Never Assessed Comments Unknown Sex and Gender Information Value Date Recorded Sex Assigned at Not on file Legal Sex Female 12:34 AM CDT Gender Identity Not on file Sexual Orientation Not on file documented as of this encounter Miscellaneous Notes * Telephone Encounter - Radha Cardenas RN - 03/06/2020 11:15 AM GENERAL FARM MANAGER Please review and sign. RAL FARM MANAGER documented in this encounter Plan of Treatment Upcoming Encounters Date Type Department Care Team (Late st Contact Info) Description 01/06/2025 9:00 AM GENERAL FARM MANAGER Office Visit [facility] - Primary Care - [place] [address] [place] [address] David Hayden MD [address] [place] [address] 01/31/2025 1:30 PM GENERAL FARM MANAGER Office Visit [facility] - Gastroenterology - [place] [address] [place] [address] Radha Agarwal APRN, PARAEDUCATOR [address] [place] [address] documented as of this encounter Visit Diagnoses Not on filedocumented in this encounter Additional Health Concerns Infection Onset Date Last Indicated Resolved Time COVID - 19 08/09/2021 08/09/2021 08/19/2021 12:1 9 AM CDT COVID - 19 Confirmed 08/09/2021 08/09/2021 022 12:16 AM CDT documented as of this encounter Care Teams Aircraft Steel Fabricator Relationship Specialty Start Date End Date David Hayden MD PCP - General Internal Medicine 12/22/19 Radha Agarwal APRN, PARAEDUCATOR [address] [place] [address] Nurse Practitioner Advanced Practice Nurse 04/23/24 documented as of this encounter
[2024-11-26 11:17] VITALS: BP 148/83; PULSE 81; RESP 16; TEMP 35.9; O2SAT 99
== END 2024-11-26 11:58 | disposition home or self-care (01) ==
PROVIDERS: Emergency Provider Nurse Practitioner Family; PCP Internal Medicine
DX: S60.021A Contusion of right index finger without damage to nail, initial encounter (principal); X58.XXXA Exposure to other specified factors, initial encounter; E07.9 Disorder of thyroid, unspecified; Z98.84 Bariatric surgery status
CPT/HCPCS: 73140; 99213; G0463